=== PATIENT | male | born 1990 | race Caucasian/White ===

== ENCOUNTER 2025-07-11 21:57 | Emergency (ER) | payer BC ==
[~2025-07-11] VITALS: Ht 182.9 cm; Wt 110.0 kg
[2025-07-11] MEDS: triamcinolone acetonide 40mg/ml inj IM ONE (23:00)
[2025-07-11] MEDS ORDERED: HYDR-3686 PO (23:08)
[2025-07-11] MEDS ORDERED: PRED20TA PO (23:08)
--- NOTE | 2025-07-11 23:08 | Physician Documentation ---
History of Present Illness ~ Chief Complaint: Rash Stated Complaint: ALLERGIC REACTION Time Seen by MD: 22:25 HPI Your 34-year-old male presents to the emergency department with a complaint of periodic rash to his axilla and perineum area. Reports he was most recently camp and however had no symptoms and does not believes is exposed to poison oak or poison yousif. Developed a rash couple of days ago and saw his primary care physician and we put him on a short course of prednisone for which he had some mild symptomatic relief however now both axilla have large urticarial patches along perineum. There was no shortness a breath, stridor or wheezing. Medication Reconciliation Allergies: Coded Allergies: No Known Allergies (Unverified , 07/11/25) Scheduled Prednisone* (Prednisone*), 3 TAB PO DAILY Scheduled PRN Hydroxyzine Hcl* (Atarax*), 1 TAB PO Q8H PRN for ITCHING Review of Systems All Other Systems at this time: Reviewed and Negative Integumentary: Reports: rash Physical Exam Vital Signs: Temperature: 98.5, Source: Temporal, Heart Rate: 93, Respiratory Rate: 16, BP: 193/100, Pulse Oximetry: 98, Weight: 110.000 Oxygen Flow Rate: 0 General Appearance: alert, WD/WN, mild distress EENT: normal ENT inspection Oropharynx/Lips: normal inspection Airway: patent Neck: normal inspection Cardiovascular: normal peripheral pulses Respiratory: normal breath sounds Chest: no accessory muscle use Extremities: normal range of motion Neurologic: oriented x4 Psychiatric: normal mood/affect Rash Location: perineum, other (Bilateral axilla) Lymphatic: no adenopathy Progress Results/Orders Results/Orders Completed Orders - SHAUNNA CHAVEZ Triamcinolone Acet 40mg/Ml Inj (Kenalog- (07/11/25 22:55) Medications Received in ER Medications (Trade) Dose Ordered Sig/Micaela Route PRN Reason Start Time Stop Time Status Last Admin Dose Admin (Kenalog-40 inj) 60 mg ONCE ONCE IM 07/11/25 22:55 07/11/25 22:56 DC 07/11/25 23:00 60 MG Vital Signs 07/11/25 22:05 Temp 98.5 Pulse 93 Resp 16 B/P (MAP) 193/100 Pulse Ox 98 O2 Flow Rate 0 Medical Decision Making Differential Dx:Considerations: Include: Anaphylaxis, Angioedema, Bronchospasm, Contact dermatitis, Drug reaction, Urticaria Differential Diagnosis Examination history consistent with hypersensitivity reaction type 1. We will go ahead and extend the prednisone for an extra three days of 60 mg and provide patient with a Kenalog 60 mg in the emergency department tonight. We will be substituted Benadryl with hydroxyzine so the patient has been taking every 6 hours and be less sedating. He understands that follow up with his primary care physician and return if symptoms worsen. Safely discharged with the emergency department without clinical suspicion for angioedema and/or anaphylaxis. Departure Disposition: HOME / SELF CARE / HOMELESS Impression: Primary Impression: Hypersensitivity reaction Qualified Codes: T78.40XD - Allergy, unspecified, subsequent encounter Additional Impression: Urticaria Condition: Improved Discharge Instructions: Ivette Additional Instructions: Please obtain prescription for the additional three days of Prednisone. Substitute Hydroxyzine for your Benadryl because it is less sedating. Return to the emergency department if worse or for respiratory symptoms. Referrals: NO PRIMARY CARE PROVIDER (PCP) Prescriptions Hydroxyzine Hcl* (Atarax*) 25 Mg Tablet 1 TAB PO Q8H PRN for ITCHING for 10 Days, #30 TAB Prov: SHAUNNA CHAVEZ 07/11/25 Prednisone* (Prednisone*) 20 Mg Tablet 3 TAB PO DAILY for 3 Days, #9 TAB Prov: SHAUNNA CHAVEZ 07/11/25 Education Educated: Patient Educated regarding: diagnosis, treatment Signature Scribe Signature: . Attestation: . SHAUNNA CHAVEZ Jul 11, 2025 23:08
[2025-07-11 23:18] VITALS: BP 180/99; PULSE 90; RESP 18; TEMP 98.6; O2SAT 99
== END 2025-07-11 23:19 | disposition home or self-care (01) ==
LOC: ER 21:58
DX: L50.9 Urticaria, unspecified (principal); T78.49XA Other allergy, initial encounter; X58.XXXA Exposure to other specified factors, initial encounter; Z79.899 Other long term (current) drug therapy
CPT/HCPCS: 96372; 99283; J3301